=== PATIENT | male | born 1990 | race African-American/Black ===

== ENCOUNTER 2019-10-30 10:44 | Emergency (ER) | payer OTHER ==
[2019-10-30 10:49] VITALS: BP 125/54; PULSE 73; TEMP 98; BMI 21.9
[2019-10-30] MEDS ORDERED: IBUPROFEN 600 MG TABLET (FP) PO ONE ×2 (11:22→11:39)
--- NOTE | 2019-10-30 11:22 | PDOC ---
History of Present Illness - General Chief Complaint: Injury Stated Complaint: RT HAND INJURY Time Seen by Provider: 10/30/19 11:14 History Source: Patient Exam Limitations: No Limitations Past History - Travel Traveled outside of the country in the last 30 days: No Close contact w/someone who was outside of country & ill: No - Past Medical History Allergies/Adverse Reactions: Allergies Allergy/AdvReac Type Severity Reaction Status Date / Time No Known Allergies Allergy Verified 10/30/19 10:45 Home Medications: Ambulatory Orders No Home Medications 0 dose .ROUTE UTDICT 05/09/13 Ibuprofen 800 mg PO TID #30 tablet 10/30/19 - Immunization History Td Vaccination: (unknown) Immunization Up to Date: Yes - Psycho Social/Smoking Cessation Hx Smoking Status: Yes Smoking History: Unknown if ever smoked Years of Tobacco Use: 7 Number of Cigarettes Smoked Daily: 5 Cigars Per Day: 0 'Breaking Loose' booklet given: 09/17/12 Hx Alcohol Use: No Drug/Substance Use Hx: Yes (MARIJUANA) Substance Use Type: Alcohol, Marijuana Hx Substance Use Treatment: No Review of Systems - Review of Systems Able to Perform ROS?: Yes Comments:: 10/30/19 12:47 CONSTITUTIONAL: Absent: fever, chills, diaphoresis, generalized weakness, malaise, loss of appetite MUSCULOSKELETAL: Present: r hand pain Absent: myalgia, arthralgia, joint swelling SKIN: Absent: rash, itching, pallor NEUROLOGIC: Absent: headache, focal weakness or paresthesias, dizziness, unsteady gait, seizure, mental status changes, bladder or bowel incontinence PSYCHIATRIC: Absent: anxiety, depression, suicidal or homicidal ideation, hallucinations. Is the patient limited Thai proficient: No *Physical Exam - Vital Signs Last Vital Signs Temp Pulse Resp BP Pulse Ox 98 F 73 18 125/54 L 99 10/30/19 10:48 10/30/19 10:48 10/30/19 10:48 10/30/19 10:48 10/30/19 10:48 - Physical Exam 10/30/19 12:50 GENERAL: The patient is awake, alert, and fully oriented, in no acute distress. HEAD: Normal with no signs of trauma. EYES: Pupils equal, round and reactive to light, extraocular movements intact, sclera anicteric, conjunctiva clear. EXTREMITIES: Tenderness to palpation of the right second knuckle with swelling. Malrotation of the right second digit noted. PMS is otherwise intact. Normal range of motion at all other joints, no edema. NEUROLOGICAL: Normal speech, normal gait. PSYCH: Normal mood, normal affect. SKIN: Warm, Dry, normal turgor, no rashes or lesions noted. Procedures - Splinting Splint Location: Right: Finger Pre-Proc Neuro Vasc Exam: normal Hand-Made Type: orthoglass Splint Type: Yes: Volar Post-Proc Neuro Vasc Exam: unchanged from pre-exam Sonny Bandage: 4" Medical Decision Making - Medical Decision Making 10/30/19 13:15 Patient is a 29-year-old male with no past medical history who presents the ER with right hand pain today. He states he was roughhousing at home when he hurt his right second hand. He will not state what exactly happened. He states that he feels like his finger dislocated and then popped back in. He states that it hurts to move his right second digit. He is right-hand dominant. Denies numbness and tingling and weakness to the affected extremity. A/P: Metacarpal fracture Patient with a fracture to the neck of the right second metacarpal. There was some malrotation documented on exam. Patient placed in a volar splint. Patient referred to orthopedics. Informed patient that he needs to follow-up within a week for further management of his fracture so he does not have permanent deficits. Patient states he understands Discharge home I discussed the physical exam findings, ancillary test results and final diagnoses with the patient. I answered all of the patient's questions. The patient was satisfied with the care received and felt comfortable with the discharge plan and treatment plan. The Patient agrees to follow up with the primary care physician/specialist within 24-72 hours. Return precautions were given. Discharge - Discharge Information Problems reviewed: Yes Clinical Impression/Diagnosis: Fracture of metacarpal Qualifiers: Encounter type: initial encounter Metacarpal bone: second Fracture type: closed Metacarpal location: neck Fracture alignment: nondisplaced Laterality: right Qualified Code(s): S62.360A - Nondisplaced fracture of neck of second metacarpal bone, right hand, initial encounter for closed fracture Condition: Stable Disposition: HOME - Admission No - Additional Discharge Information Prescriptions: Ibuprofen 800 mg PO TID #30 tablet - Follow up/Referral Referrals: Rodger Louis MD [Staff Physician] - Raad Kaufman MD [Staff Physician] - - Patient Discharge Instructions Patient Printed Discharge Instructions: DI for a Hand Fracture Additional Instructions: Your evaluated for your hand pain today. You broke the bone in your second finger. Please take Motrin 800 mg every 8 hours for pain and swelling. Please do not get the splint wet. Leave the splint on until you can see orthopedics. You need to see the hand specialist/orthopedic by 11/06/2019. Referrals have been provided to you. Return to the ER for worsening pain, numbness and tingling to the extremities, or if you have any changes in your symptoms. - Post Discharge Activity Work/Back to School Note: Back to Work
== END 2019-10-30 12:49 | disposition home or self-care (01) ==
LOC: JERFT 10:44 → JER 10:44 → JERFT 12:49
PROC: 2W3CX1Z Immobilization of Right Lower Arm using Splint (ICD-10-PCS; principal; 2019-10-30)
DX: S62.360A Nondisplaced fracture of neck of second metacarpal bone, right hand, initial encounter for closed fracture (principal); Y93.83 Activity, rough housing and horseplay; Y93.89 Activity, other specified; Y92.038 Other place in apartment as the place of occurrence of the external cause; Y99.8 Other external cause status
CPT/HCPCS: 29126; 73130-TC-RT-FY; 99281-25

== ENCOUNTER 2019-11-09 11:04 | Day surgery (SDC) | payer OTHER ==
[2019-11-08 15:50] VITALS: BMI 21.9
[2019-11-09] MEDS ORDERED: BUPIVACAINE HCL 0.25% 125 MG/50 ML VIAL ONE (12:45)
[2019-11-09] MEDS ORDERED: MIDAZOLAM HCL 2 MG/2 ML SINGLE DOSE VIAL ONE (12:52)
[2019-11-09] MEDS ORDERED: PROPOFOL 20 ML ONE ×3 (12:52→13:15)
[2019-11-09] MEDS ORDERED: SUCCINYLCHOLINE CHLORIDE 200 MG/10 ML SYRINGE ONE (12:57)
[2019-11-09] MEDS ORDERED: fentaNYL CITRATE 250 MCG/5 ML VIAL ONE (13:15)
[2019-11-09] MEDS ORDERED: ceFAZolin SODIUM 1 GM VIAL ONE (13:30)
[2019-11-09] MEDS ORDERED: KETOROLAC TROMETHAMINE 30 MG/1 ML VIAL ONE (13:43)
[2019-11-09] MEDS ORDERED: ONDANSETRON 4 MG/2 ML VIAL ONE ×2 (13:43→14:36)
[2019-11-09] MEDS ORDERED: DEXAMETHASONE SOD PHOSPHATE 4 MG/1 ML VIAL ONE ×2 (13:45)
--- NOTE | 2019-11-09 14:43 | OP ---
DATE OF OPERATION: 11/09/2019 PREOPERATIVE DIAGNOSIS: Right index metacarpal neck displaced fracture. POSTOPERATIVE DIAGNOSIS: Right index metacarpal neck displaced fracture. OPERATIVE PROCEDURE: Open reduction and internal fixation, right index finger metacarpal neck fracture. SURGEON: Nataliia Spain MD [employer] MA[employer]: NICOLA Murillo ANESTHESIA: General. COMPLICATIONS: None. ESTIMATED BLOOD LOSS: Minimal. INDICATIONS FOR PROCEDURE: The patient is a 29-year-old male with the above finding, indicated for operative treatment. Risks, benefits, and alternatives were discussed with patient at length. Proper informed consent was obtained. PROCEDURE: After proper identification of patient and correct operative site, patient brought to the operating room and placed supine on the operating room table with all prominences well padded. General anesthesia was provided. Right upper extremity was prepped and draped in usual sterile fashion. A well-padded tourniquet was placed with a sterile prep. Esmarch bandage used to exsanguinate right upper extremity. Tourniquet was inflated to 250 mmHg. A longitudinal incision made over the index dorsal MCP joint. Incision was taken sharply through skin with blunt and sharp dissection through subcutaneous tissues. A small incision was made just ulnar to the extensor mechanism. A guide wire was placed through this into the metacarpal head, the fracture was reduced, and the guide wire was placed across the fracture site. Proper alignment was confirmed and proper sizing was confirmed. The ExsoMed screw was used, a 4.5 x 55-mm implant was used. proper reduction and sizing and placement of hardware was confirmed radiographically, after the reduction and internal fixation. The wound was irrigated and repaired with 5-0 fast-absorbing plain-gut suture, as well as Dermabond. Sterile dressings and a splint were placed. Patient was reversed from anesthesia and brought to recovery room in stable condition. Of note, on the operative table, after reduction, full range of motion was easily achieved at the MCP joint, which was diminished preoperatively. Tariq Yepez, the animal assistant, was integral throughout the procedure. Procedure could not have been performed without a skilled operative animal assistant. NATALIIA SPAIN M.D. CHIN/[id number]
[2019-11-09] MEDS ORDERED: ONDANSETRON 4 MG/2 ML VIAL IVPUSH PRN (14:44)
[2019-11-09] MEDS ORDERED: oxyCODONE HCL 5 MG TABLET PO PRN (15:13)
[2019-11-09 16:08] VITALS: PULSE 69
[2019-11-09 16:10] VITALS: BP 122/71; TEMP 98
== END 2019-11-09 16:10 | disposition home or self-care (01) ==
LOC: FASU 11:04
PROVIDERS: ATTEND Orthopaedic Surgery Hand Surgery
PROC: 0PSP04Z Reposition Right Metacarpal with Internal Fixation Device, Open Approach (ICD-10-PCS; principal; 2019-11-09 13:27)
DX: S62.330A Displaced fracture of neck of second metacarpal bone, right hand, initial encounter for closed fracture (principal); X58.XXXA Exposure to other specified factors, initial encounter; Y93.9 Activity, unspecified; Y92.9 Unspecified place or not applicable
CPT/HCPCS: 73140-TC-RT-FY; 94760

== ENCOUNTER 2021-03-22 10:20 | Emergency (ER) | payer OTHER ==
[2021-03-22 10:59] VITALS: BP 113/69; PULSE 68; TEMP 98.1; BMI 21.9
[2021-03-22] MEDS ORDERED: IBUPROFEN 400 MG TABLET (FP) PO ONE ×2 (11:48→11:50)
== END 2021-03-22 12:21 | disposition home or self-care (01) ==
LOC: JERFT 10:20 → JER 10:20 → JERFT 12:21
DX: S60.414A Abrasion of right ring finger, initial encounter (principal); S69.91XA Unspecified injury of right wrist, hand and finger(s), initial encounter
CPT/HCPCS: 73140-TC-RT-FY; 99283-25